=== PATIENT | female | born 1955 | race Caucasian/White ===

== ENCOUNTER → 2019-07-22 | Outpatient (REF) | payer MEDICARE, OTHER ==
[2019-07-22 12:55] LABS: HEMOGLOBIN A1c 6.6 %
[2019-07-22 13:14] LABS: BLOOD UREA NITROGEN 14 MG/DL (7-18); CALCIUM LEVEL 9.3 MG/DL (8.8-10.2); CARBON DIOXIDE LEVEL 29 MEQ/L (21-32); CHLORIDE LEVEL 103 MEQ/L (98-107); CHOLESTEROL LEVEL 163 MG/DL (<200); CREATININE FOR GFR 0.62 MG/DL (0.55-1.30); GLOMERULAR FILTRATION RATE > 60.0 (>45); GLUCOSE, FASTING 115 MG/DL (70-100); HDL CHOLESTEROL 58 MG/DL (>40); LDL CHOLESTEROL 79 MG/DL (<100); MAGNESIUM LEVEL 2.2 MG/DL (1.8-2.4); NON-HDL-C 105 MG/DL; POTASSIUM SERUM 4.7 MEQ/L (3.5-5.1); SODIUM LEVEL 140 MEQ/L (136-145); TRIGLYCERIDES LEVEL 132 MG/DL (<150)
[2019-07-22 13:15] LABS: CREATININE, URINE 57.1 MG/DL; MALB URINE SIEMENS < 5.0 MG/L; MAU/CREAT RATIO 8.7 MCG/MG (0.0-30.0)
== END ==
LOC: M SFHCPLAZ 08:12
PROVIDERS: ATTEND Family Medicine
DX: E11.9 Type 2 diabetes mellitus without complications (principal); E78.2 Mixed hyperlipidemia; I10 Essential (primary) hypertension; E83.42 Hypomagnesemia

== ENCOUNTER → 2019-12-10 | Outpatient (REF) | payer MEDICARE, OTHER ==
[2019-12-10 14:05] LABS: BLOOD UREA NITROGEN 17 MG/DL (7-18); CALCIUM LEVEL 9.5 MG/DL (8.8-10.2); CARBON DIOXIDE LEVEL 26 MEQ/L (21-32); CHLORIDE LEVEL 107 MEQ/L (98-107); CREATININE FOR GFR 0.81 MG/DL (0.55-1.30); GLOMERULAR FILTRATION RATE > 60.0 (>45); GLUCOSE, FASTING 106 MG/DL (70-100); POTASSIUM SERUM 4.2 MEQ/L (3.5-5.1); SODIUM LEVEL 141 MEQ/L (136-145)
[2019-12-10 14:16] LABS: HEMOGLOBIN A1c 6.5 %
== END ==
LOC: M SFHCPLAZ 10:47
PROVIDERS: ATTEND Family Medicine
DX: E11.9 Type 2 diabetes mellitus without complications (principal); I10 Essential (primary) hypertension
CPT/HCPCS: 80048; 83036; G0463

== ENCOUNTER → 2020-01-22 | Outpatient (CLI) | payer MEDICARE, OTHER ==
[~2020-01-22] MED LIST: AMLO5TAB6 PO; ATEN25TA PO; ATOR40TA75 PO; CIDA500T2 PO; CITRTAB19 PO; ECOT81TA5 PO; INSURSD SC; IRBE300T7 PO; LANTINJ4 IM; MAGN400C PO; METF10004 PO; MULTCAP PO; OMEP-221 PO; PROBCAP14 PO; VASC1CAP2 PO; VENTAER INH; VICT18IN2 IM
--- NOTE | 2020-02-02 12:27 | REPMRS ---
Patient History Patient has history of cancer in the right breast at age 44. Family history of breast cancer in maternal grandmother, breast cancer at age 56 in sister, breast cancer in maternal cousin, breast cancer in maternal cousin, endometrial cancer at age 62 in sister. Digital Woman Screen Mammo: January 22, 2020 - Exam #: [id number] Bilateral CC and MLO view(s) were taken. Technologist: Hali Arora, Technologist Prior study comparison: October 22, 2018, bilateral digital woman screen mammo, performed at [facility]. September 26, 2017, bilateral digital woman screen mammo, performed at [facility]. September 06, 2016, bilateral digital woman screen mammo, performed at [facility]. FINDINGS: There are scattered fibroglandular densities. The Volpara volumetric breast density category is:B. There are stable post-treatment changes again noted on the right. There has been no change in the appearance of the mammogram from the prior studies. There is a mild amount of scattered fibroglandular density which is fairly symmetric. There is no interval development of dominant mass, architectural distortion, or grouped microcalcification suggestive of malignancy. 3-D tomosynthesis shows no additional findings. Assessment: BI-RADS/ACR category 2 mammogram. Benign Findings. Recommendation Routine screening mammogram of both breasts in 1 year (for women over age 40). This mammogram was interpreted with the aid of an FDA-approved computer-aided dectection system. Electronically Signed By: Dewayne Izquierdo MD 02/02/20 [id number]
== END ==
LOC: M WHC 13:58
PROVIDERS: ATTEND Family Medicine
DX: Z12.31 Encounter for screening mammogram for malignant neoplasm of breast (principal); Z85.3 Personal history of malignant neoplasm of breast; Z80.3 Family history of malignant neoplasm of breast; Z80.49 Family history of malignant neoplasm of other genital organs

== ENCOUNTER → 2020-02-05 | Outpatient (CLI) | payer MEDICARE, OTHER | LOC: M LABSMTC 10:30 | PROVIDERS: ATTEND Anesthesiology | DX: Z11.59 Encounter for screening for other viral diseases (principal) | CPT/HCPCS: C9803; U0003 ==

== ENCOUNTER 2020-02-08 07:08 | Day surgery (SDC) | payer MEDICARE, OTHER ==
[~2020-02-08] VITALS: Ht 162.6 cm; Wt 120.6 kg
[~2020-02-08 07:08] MED LIST changes: +NS 1,000 ML IV ONE
--- NOTE | 2020-02-08 08:41 | ROOR ---
Patient Name: Alisa Echevarria Procedure Date: 02/08/2020 7:39 AM Date of : 1955 Age: 64 Room: [facility] Gender: Female Note Status: Finalized Procedure: Upper GI endoscopy Indications: Dyspepsia, Heartburn Providers: Paul Bearden MD Referring MD: Virginia Pelaez MD Requesting Provider: Medicines: Monitored Anesthesia Care Complications: No immediate complications. Procedure: Pre-Anesthesia Assessment: - Prior to the procedure, a History and Physical was performed, and patient medications and allergies were reviewed. The patient is competent. The risks and benefits of the procedure and the sedation options and risks were discussed with the patient. All questions were answered and informed consent was obtained. Patient identification and proposed procedure were verified by the physician, the nurse and the anesthesiologist in the procedure room. Mental Status Examination: alert and oriented. Airway Examination: normal oropharyngeal airway and neck mobility. Respiratory Examination: clear to auscultation. CV Examination: normal. Prophylactic Antibiotics: The patient does not require prophylactic antibiotics. Prior Anticoagulants: The patient has taken no previous anticoagulant or antiplatelet agents. ASA Grade Assessment: II - A patient with mild systemic disease. After reviewing the risks and benefits, the patient was deemed in satisfactory condition to undergo the procedure. The anesthesia plan was to use monitored anesthesia care (MAC). Immediately prior to administration of medications, the patient was re-assessed for adequacy to receive sedatives. The heart rate, respiratory rate, oxygen saturations, blood pressure, adequacy of pulmonary ventilation, and response to care were monitored throughout the procedure. The physical status of the patient was re-assessed after the procedure. The Endoscope was introduced through the mouth, and advanced to the second part of duodenum. The upper GI endoscopy was accomplished without difficulty. The patient tolerated the procedure well. Findings: The Z-line was irregular and was found 36 cm from the incisors. Biopsies were taken with a cold forceps for histology. Verification of patient identification for the specimen was done by the physician and nurse using the patient's name, date and medical record number. Estimated blood loss was minimal. There is no endoscopic evidence of stricture or mass in the lower third of the esophagus. Scattered moderate inflammation characterized by erythema and granularity was found in the gastric antrum. Biopsies were taken with a cold forceps for Helicobacter pylori testing. The duodenal bulb and second portion of the duodenum were normal. Biopsies for histology were taken with a cold forceps for evaluation of celiac disease. Impression: - Z-line irregular, 36 cm from the incisors. Biopsied. - Gastritis. Biopsied. - Normal duodenal bulb and second portion of the duodenum. Biopsied. Recommendation: - Patient has a contact number available for emergencies. The signs and symptoms of potential delayed complications were discussed with the patient. Return to normal activities tomorrow. Written discharge instructions were provided to the patient. - High fiber diet. - Continue present medications. - Await pathology results. - Follow an antireflux regimen. - Telephone GI clinic for pathology results in 2 weeks. - Return to primary care physician. Paul Bearden MD Paul Bearden MD 02/08/2020 8:40:47 AM Electronically signed by Paul Bearden MD Number of Addenda: 0 Note Initiated On: 02/08/2020 7:39 AM Estimated Blood Loss: Estimated blood loss was minimal.
--- NOTE | 2020-02-08 08:58 | ROOR ---
Patient Name: Alisa Echevarria Procedure Date: 02/08/2020 7:40 AM Date of : 1955 Age: 64 Room: [facility] Gender: Female Note Status: Finalized Procedure: Colonoscopy Indications: High risk colon cancer surveillance: Personal history of colonic polyps Providers: Paul Bearden MD Referring MD: Virginia Pelaez MD Requesting Provider: Medicines: Monitored Anesthesia Care Complications: No immediate complications. Procedure: Pre-Anesthesia Assessment: - Prior to the procedure, a History and Physical was performed, and patient medications and allergies were reviewed. The patient is competent. The risks and benefits of the procedure and the sedation options and risks were discussed with the patient. All questions were answered and informed consent was obtained. Patient identification and proposed procedure were verified by the physician, the nurse and the anesthesiologist in the procedure room. Mental Status Examination: alert and oriented. Airway Examination: normal oropharyngeal airway and neck mobility. Respiratory Examination: clear to auscultation. CV Examination: normal. Prophylactic Antibiotics: The patient does not require prophylactic antibiotics. Prior Anticoagulants: The patient has taken no previous anticoagulant or antiplatelet agents. ASA Grade Assessment: II - A patient with mild systemic disease. After reviewing the risks and benefits, the patient was deemed in satisfactory condition to undergo the procedure. The anesthesia plan was to use monitored anesthesia care (MAC). Immediately prior to administration of medications, the patient was re-assessed for adequacy to receive sedatives. The heart rate, respiratory rate, oxygen saturations, blood pressure, adequacy of pulmonary ventilation, and response to care were monitored throughout the procedure. The physical status of the patient was re-assessed after the procedure. The Colonoscope was introduced through the anus and advanced to the cecum, identified by appendiceal orifice and ileocecal valve. The colonoscopy was performed without difficulty. The patient tolerated the procedure well. The quality of the bowel preparation was good. The ileocecal valve, appendiceal orifice, and rectum were photographed. Scope insertion time was 3 minutes. Scope withdrawal time was 9 minutes. The total duration of the procedure was 12 minutes. Findings: The perianal and digital rectal examinations were normal. Seven sessile polyps were found in the recto-sigmoid colon, transverse colon and ascending colon. The polyps were 4 to 8 mm in size. These polyps were removed with a cold snare. Resection and retrieval were complete. Verification of patient identification for the specimen was done by the physician and nurse using the patient's name, date and medical record number. Estimated blood loss was minimal. Non-bleeding external and internal hemorrhoids were found during retroflexion. The hemorrhoids were medium-sized. Impression: - Seven 4 to 8 mm polyps at the recto-sigmoid colon, in the transverse colon and in the ascending colon, removed with a cold snare. Resected and retrieved. - Non-bleeding external and internal hemorrhoids. Recommendation: - Patient has a contact number available for emergencies. The signs and symptoms of potential delayed complications were discussed with the patient. Return to normal activities tomorrow. Written discharge instructions were provided to the patient. - High fiber diet. - Continue present medications. - Await pathology results. - Repeat colonoscopy in 3 - 5 years for surveillance based on pathology results. - Telephone GI clinic for pathology results in 2 weeks. - Return to primary care physician. Paul Bearden MD Paul Bearden MD 02/08/2020 8:57:50 AM Electronically signed by Paul Bearden MD Number of Addenda: 0 Note Initiated On: 02/08/2020 7:40 AM Estimated Blood Loss: Estimated blood loss was minimal.
[2020-02-08 09:10] VITALS: BP 137/62
== END 2020-02-08 09:21 | disposition home or self-care (01) ==
LOC: M OPP 07:08
PROVIDERS: ATTEND Internal Medicine Gastroenterology
DX: K63.5 Polyp of colon (principal); K64.8 Other hemorrhoids; Z86.010 Personal history of colon polyps; Z09 Encounter for follow-up examination after completed treatment for conditions other than malignant neoplasm; K22.8 Other specified diseases of esophagus; K29.70 Gastritis, unspecified, without bleeding; R10.13 Epigastric pain; E11.9 Type 2 diabetes mellitus without complications; Z79.4 Long term (current) use of insulin; Z79.899 Other long term (current) drug therapy; Z88.0 Allergy status to penicillin; Z88.8 Allergy status to other drugs, medicaments and biological substances

== ENCOUNTER → 2020-02-17 | Outpatient (CLI) | payer MEDICARE, OTHER ==
[~2020-02-17] MED LIST changes: -NS 1,000 ML IV ONE
--- NOTE | 2020-03-01 14:20 | SLEEPCENT ---
DATE OF STUDY: 02/17/2020 ORDERED BY: Tabitha Solomon Nocturnal polysomnography was performed for the titration of pressure therapy in a patient with obstructive sleep apnea syndrome. For testing, a ResMed Quattro full face mask was used. Initial bilevel pressure of 14/10 was applied to the circuit and the lights were extinguished. 7 hours and 52 minutes of data were reviewed. There were 331 minutes of sleep identified. Sleep latency was normal at 8.5 minutes. REM latency was delayed at 102 minutes. Sleep architecture showed fragmentation. There were 2 REM cycles noted. Overall sleep efficiency was 71%. Electrocardiogram showed a sinus rhythm with an average heart rate of 68 beats per minute. Rate ranged 64-90. Electroencephalogram (EEG) showed reasonably normal waveforms for awake and sleep. The patient initially responded well and was able to proceed through her first REM cycle on a bilevel pressure 16/12. Shortly thereafter, however, central apneas emerged with associated desaturations and despite increases in pressure central events persisted. Pressure was titrated as high as 19/15 with persistence and increase in central apneas and associated oxygen desaturations. Best sleep was seen on a bilevel pressure 16/12, however, oxygen desaturations into the mid 80s persisted. IMPRESSION: Severe complex obstructive sleep apnea syndrome (G47.31, G47.33). RECOMMENDATION: Initiation of bilevel pressure therapy at 16/12 would appear to be the most favorable based on this titration. However, the patient continued to display desaturations and may need a second night of titration with lower expiratory pressures and possibly supplemental oxygen and a backup rate depending on clinical response.
== END ==
LOC: M SLEEP 20:00
PROVIDERS: ATTEND Nurse Practitioner Family
DX: G47.33 Obstructive sleep apnea (adult) (pediatric) (principal); G47.31 Primary central sleep apnea

== ENCOUNTER → 2020-03-18 | Outpatient (REF) | payer MEDICARE, OTHER ==
[~2020-03-18] MED LIST changes: +AMLO1TAB24 PO; -AMLO5TAB6 PO
[2020-05-05 13:42] LABS: HEMOGLOBIN A1c 6.2 %
== END ==
LOC: M SFHCPLAZ 07:59
PROVIDERS: ATTEND Family Medicine
DX: E11.9 Type 2 diabetes mellitus without complications (principal)
CPT/HCPCS: 36415; 83036; G0463

== ENCOUNTER → 2020-04-26 | Outpatient (CLI) | payer MEDICARE, OTHER ==
--- NOTE | 2020-04-29 09:50 | SLEEPCENT ---
DATE: 04/26/2020 ORDERED BY: Dr. Tabitha Solomon Nocturnal polysomnography was performed for the titration of pressure therapy in this patient with obstructive sleep apnea syndrome. For testing, a ResMed AirFit F20 full-face mask was used of medium size. There was 4 cm of water pressure applied to the circuit, and the lights were extinguished. There was 8 hours and 1 minute of data reviewed. There was 381 minutes of sleep identified. Sleep latency was mildly prolonged at 13 minutes. REM latency more so prolonged at 220 minutes. Sleep architecture improved late in the study on optimal pressure therapy. There were two REM cycles noted. Overall sleep efficiency was 80.3%. The electrocardiogram showed a sinus rhythm with average heart rate of 90 beats per minute. EEG showed reasonably normal waveforms for wake and sleep. Respiratory events were fully palliated with CPAP at a pressure of +11. Some limb activity was appreciated. Limb movement arousals occurred 11.7 times per hour. IMPRESSION: 1. Obstructive sleep apnea syndrome (G47.33). 2. Possible periodic limb movement disorder (G47.61). Limb movement arousal index 11.7. RECOMMENDATION: Nightly use of pressure therapy at 11 cm of water would seem appropriate to address the patient's obstructive respiratory events. Pending clinical response, interventions to reduce the frequency of arousal from limb activity may also be helpful. [facility]
== END ==
LOC: M SLEEP 20:00
PROVIDERS: ATTEND Nurse Practitioner Family
DX: G47.33 Obstructive sleep apnea (adult) (pediatric) (principal); G47.61 Periodic limb movement disorder

== ENCOUNTER → 2020-08-02 | Outpatient (REF) | payer MEDICARE, OTHER ==
[2020-08-02 12:43] LABS: CREATININE, URINE 76.3 MG/DL; MALB URINE SIEMENS 8.8 MG/L; MAU/CREAT RATIO 11.5 MCG/MG (0.0-30.0)
[2020-08-02 12:53] LABS: ALBUMIN 3.6 GM/DL (3.2-5.2); ALT/SGPT 45 U/L (12-78); BILIRUBIN,TOTAL 0.3 MG/DL (0.2-1.0); BLOOD UREA NITROGEN 16 MG/DL (7-18); CALCIUM LEVEL 9.5 MG/DL (8.8-10.2); CARBON DIOXIDE LEVEL 27 MEQ/L (21-32); CHLORIDE LEVEL 104 MEQ/L (98-107); CHOLESTEROL LEVEL 166 MG/DL (<200); CREATININE FOR GFR 0.77 MG/DL (0.55-1.30); GLOMERULAR FILTRATION RATE > 60.0 (>45); GLUCOSE, FASTING 144 MG/DL (70-100); HDL CHOLESTEROL 50 MG/DL (>40); LDL CHOLESTEROL 73 MG/DL (<100); NON-HDL-C 116 MG/DL; POTASSIUM SERUM 4.7 MEQ/L (3.5-5.1); SODIUM LEVEL 139 MEQ/L (136-145); TOTAL PROTEIN 6.7 GM/DL (6.4-8.2); TRIGLYCERIDES LEVEL 215 MG/DL (<150)
[2020-08-02 13:05] LABS: HEMOGLOBIN A1c 6.3 %
== END ==
LOC: M PLALAB 07:57
PROVIDERS: ATTEND Family Medicine
DX: E78.2 Mixed hyperlipidemia (principal); I10 Essential (primary) hypertension; E11.9 Type 2 diabetes mellitus without complications; E83.42 Hypomagnesemia

== ENCOUNTER → 2020-09-13 | Outpatient (CLI) | payer MEDICARE, OTHER | LOC: M LABSMTC 12:06 | PROVIDERS: ATTEND Family Medicine | DX: Z20.822 Contact with and (suspected) exposure to COVID-19 (principal) ==

== ENCOUNTER → 2020-11-21 | Outpatient (CLI) | payer MEDICARE, OTHER ==
--- NOTE | 2020-11-21 11:34 | REPPI ---
INDICATION: M25.562 KNEE PAIN LEFT COMPARISON: None. TECHNIQUE: Four views left knee. FINDINGS: There is no evidence of acute fracture, dislocation, or intrinsic bone disease.There is mild diffuse joint space narrowing. There is a mild to moderate joint effusion. IMPRESSION: No fracture or dislocation. Mild diffuse degenerative changes. Mild to moderate joint effusion. <Electronically signed by Colton Moise > 11/21/20 [id number]
== END ==
LOC: M PLAIMG 10:52
PROVIDERS: ATTEND Nurse Practitioner Family
DX: M17.12 Unilateral primary osteoarthritis, left knee (principal); M25.462 Effusion, left knee; M25.562 Pain in left knee

== ENCOUNTER → 2021-01-25 | Outpatient (REF) | payer MEDICARE, OTHER ==
[2021-01-25 13:11] LABS: BLOOD UREA NITROGEN 13 MG/DL (7-18); CALCIUM LEVEL 9.1 MG/DL (8.8-10.2); CARBON DIOXIDE LEVEL 28 MEQ/L (21-32); CHLORIDE LEVEL 107 MEQ/L (98-107); CREATININE FOR GFR 0.61 MG/DL (0.55-1.30); GLOMERULAR FILTRATION RATE > 60.0 (>45); GLUCOSE, FASTING 103 MG/DL (70-100); POTASSIUM SERUM 4.3 MEQ/L (3.5-5.1); SODIUM LEVEL 141 MEQ/L (136-145)
[2021-01-25 19:12] LABS: HEMOGLOBIN A1c 6.3 %
== END ==
LOC: M PLALAB 10:54
PROVIDERS: ATTEND Family Medicine
DX: E11.9 Type 2 diabetes mellitus without complications (principal); I10 Essential (primary) hypertension

== ENCOUNTER → 2021-02-09 | Outpatient (CLI) | payer MEDICARE, OTHER ==
--- NOTE | 2021-02-09 12:06 | REPMRS ---
Patient History The patient states she has not had a clinical breast exam in over a year. Family history of breast cancer in maternal grandmother, breast cancer at age 56 in sister, breast cancer in maternal cousin, breast cancer in maternal cousin, endometrial cancer at age 62 in sister. Malignant lumpectomy of the right breast, 1998. Radiation therapy of the right breast, 1998. Patient states no breast complaints today. Patient has signed MRS History Sheet. Digital Woman Screen Mammo: February 09, 2021 - Exam #: [id number] Bilateral CC and MLO view(s) were taken. Technologist: Kim Michaels Technologist Prior study comparison: January 22, 2020, bilateral digital woman screen mammo performed at [facility]. October 22, 2018, bilateral digital woman screen mammo, performed at [facility]. September 26, 2017, bilateral digital woman screen mammo, performed at [facility]. FINDINGS: There are scattered fibroglandular densities. The Volpara volumetric breast density category is:B. Post treatment changes are again noted in the right breast. There has been no change in the appearance of the mammogram from the prior studies. There is a mild amount of scattered fibroglandular density which is fairly symmetric. There is no interval development of dominant mass, architectural distortion, or grouped microcalcification suggestive of malignancy. 3-D tomosynthesis shows no additional findings. Assessment: BI-RADS/ACR category 2 mammogram. Benign Findings. Recommendation Routine screening mammogram of both breasts in 1 year (for women over age 40). This mammogram was interpreted with the aid of an FDA-approved computer-aided dectection system. Electronically Signed By: Dewayne Izquierdo MD 02/09/21 [id number]
== END ==
LOC: M WHC 10:51
PROVIDERS: ATTEND Family Medicine
DX: Z12.31 Encounter for screening mammogram for malignant neoplasm of breast (principal); Z80.3 Family history of malignant neoplasm of breast; Z85.3 Personal history of malignant neoplasm of breast; Z92.3 Personal history of irradiation